=== PATIENT | male | born 1975 | race Caucasian/White ===

== ENCOUNTER 2017-02-28 19:46 | Emergency (ER) | payer OTHER ==
[~2017-02-28 19:46] MED LIST: BENADRYL ALLERG25 M1 PO; CIMETIDINE200 MG PO; FENOFIBRATE54 M1 PO; HYDROCHLOROTHIA25 MG PO; LEXAPRO10 MG PO; LISINOPRIL20 MG PO; MEDDP PO; METOPROLOL SUCC25 M1 PO; SER25 PO
[2017-02-28 20:46] VITALS: BP 148/93
== END 2017-02-28 20:46 | disposition left against medical advice (07) ==
LOC: ED 19:46
DX: S00.212A Abrasion of left eyelid and periocular area, initial encounter (principal); I10 Essential (primary) hypertension; F41.9 Anxiety disorder, unspecified; F10.10 Alcohol abuse, uncomplicated; E78.5 Hyperlipidemia, unspecified; I00 Rheumatic fever without heart involvement; W22.8XXA Striking against or struck by other objects, initial encounter; Y93.89 Activity, other specified; Y92.89 Other specified places as the place of occurrence of the external cause; Y99.8 Other external cause status
CPT/HCPCS: 90715

== ENCOUNTER 2017-04-30 11:16 | Emergency (ER) | payer OTHER ==
[2017-04-30 12:17] VITALS: BP 132/98
== END 2017-04-30 12:17 | disposition home or self-care (01) ==
LOC: ED 11:16
DX: S29.012A Strain of muscle and tendon of back wall of thorax, initial encounter (principal); M77.9 Enthesopathy, unspecified; I10 Essential (primary) hypertension; E78.00 Pure hypercholesterolemia, unspecified; X50.9XXA Other and unspecified overexertion or strenuous movements or postures, initial encounter; Y93.89 Activity, other specified; Y99.8 Other external cause status; Y92.89 Other specified places as the place of occurrence of the external cause

== ENCOUNTER 2018-12-28 17:44 | Emergency (ER) | payer OTHER ==
[~2018-12-28] VITALS: Ht 175.3 cm; Wt 64.0 kg
[2018-12-28 17:49] VITALS: Ht 175.3 cm; Wt 64.0 kg
[2018-12-28 20:41] VITALS: BP 152/78
== END 2018-12-28 20:30 | disposition home or self-care (01) ==
LOC: ED 17:44
DX: M54.5 Low back pain (principal); G89.29 Other chronic pain; I10 Essential (primary) hypertension; F41.9 Anxiety disorder, unspecified; F10.10 Alcohol abuse, uncomplicated; E78.00 Pure hypercholesterolemia, unspecified; R20.2 Paresthesia of skin
CPT/HCPCS: J1885; J2270; Q0162

== ENCOUNTER 2019-01-08 17:11 | Emergency (ER) | payer OTHER ==
[~2019-01-08] VITALS: Ht 175.3 cm; Wt 62.7 kg
[2019-01-08 17:40] VITALS: Ht 175.3 cm; Wt 62.7 kg
[2019-01-08 20:33] LABS: microscopic required? NO
[2019-01-08 20:50] LABS: UA SPECIFIC GRAVITY >=1.030 (1.005-1.035); urine erythrocyte NEGATIVE (NEGATIVE)
[2019-01-08 21:28] VITALS: BP 133/95
== END 2019-01-08 21:28 | disposition home or self-care (01) ==
LOC: ED 17:11
PROVIDERS: Emergency Medicine
DX: M70.72 Other bursitis of hip, left hip (principal); M70.71 Other bursitis of hip, right hip; L73.8 Other specified follicular disorders; M54.42 Lumbago with sciatica, left side; M54.41 Lumbago with sciatica, right side; I10 Essential (primary) hypertension; F41.9 Anxiety disorder, unspecified; F10.10 Alcohol abuse, uncomplicated; E78.00 Pure hypercholesterolemia, unspecified; Y93.89 Activity, other specified

== ENCOUNTER 2019-01-17 18:19 | Emergency (ER) | payer OTHER ==
[~2019-01-17] VITALS: Ht 175.3 cm; Wt 61.7 kg
[2019-01-17 18:31] VITALS: Ht 175.3 cm; Wt 61.7 kg
[2019-01-17 21:05] VITALS: BP 156/84
== END 2019-01-17 21:05 | disposition home or self-care (01) ==
LOC: ED 18:19
DX: S39.92XA Unspecified injury of lower back, initial encounter (principal); F41.9 Anxiety disorder, unspecified; F10.10 Alcohol abuse, uncomplicated; W18.39XA Other fall on same level, initial encounter; Y93.89 Activity, other specified; Y92.89 Other specified places as the place of occurrence of the external cause; Y99.0 Civilian activity done for income or pay
CPT/HCPCS: J1885

== ENCOUNTER 2019-02-08 15:48 | Emergency (ER) | payer OTHER ==
[~2019-02-08] VITALS: Ht 175.3 cm; Wt 62.6 kg
[2019-02-08 16:01] VITALS: Ht 175.3 cm; Wt 62.6 kg
[2019-02-08 17:04] VITALS: BP 134/82
== END 2019-02-08 17:04 | disposition home or self-care (01) ==
LOC: ED 15:48
DX: T78.2XXA Anaphylactic shock, unspecified, initial encounter (principal); R06.02 Shortness of breath; R06.03 Acute respiratory distress; I10 Essential (primary) hypertension; F41.9 Anxiety disorder, unspecified; E78.00 Pure hypercholesterolemia, unspecified; I00 Rheumatic fever without heart involvement
CPT/HCPCS: J1885

== ENCOUNTER 2019-02-11 04:13 | Emergency (ER) | payer OTHER ==
[~2019-02-11] VITALS: Ht 175.3 cm; Wt 64.9 kg
[2019-02-11 04:15] VITALS: Ht 175.3 cm; Wt 64.9 kg
[2019-02-11 10:23] VITALS: BP 109/936
== END 2019-02-11 10:23 | disposition home or self-care (01) ==
LOC: ED 04:13
DX: T88.6XXA Anaphylactic reaction due to adverse effect of correct drug or medicament properly administered, initial encounter (principal); T44.5X5A Adverse effect of predominantly beta-adrenoreceptor agonists, initial encounter; I10 Essential (primary) hypertension; F41.9 Anxiety disorder, unspecified; F10.10 Alcohol abuse, uncomplicated; E78.00 Pure hypercholesterolemia, unspecified; Y92.89 Other specified places as the place of occurrence of the external cause
CPT/HCPCS: J0171; J1200; J2930; J3490

== ENCOUNTER 2019-04-12 21:13 | Emergency (ER) | payer OTHER ==
[~2019-04-12] VITALS: Ht 175.3 cm; Wt 67.6 kg
[2019-04-12 21:52] VITALS: Ht 175.3 cm; Wt 67.6 kg
[2019-04-13 01:07] VITALS: BP 140/76
== END 2019-04-13 01:07 | disposition home or self-care (01) ==
LOC: ED 21:13
DX: M51.9 Unspecified thoracic, thoracolumbar and lumbosacral intervertebral disc disorder (principal); F17.210 Nicotine dependence, cigarettes, uncomplicated; I10 Essential (primary) hypertension; F41.9 Anxiety disorder, unspecified; E78.00 Pure hypercholesterolemia, unspecified
CPT/HCPCS: J1885; J2270; Q0162

== ENCOUNTER 2019-05-12 16:10 | Emergency (ER) | payer OTHER ==
[~2019-05-12] VITALS: Ht 175.3 cm; Wt 62.6 kg
[2019-05-12 16:14] VITALS: Ht 175.3 cm; Wt 62.6 kg
[2019-05-12 18:59] VITALS: BP 162/94
== END 2019-05-12 18:59 | disposition home or self-care (01) ==
LOC: ED 16:10
DX: S16.1XXA Strain of muscle, fascia and tendon at neck level, initial encounter (principal); F41.9 Anxiety disorder, unspecified; E78.00 Pure hypercholesterolemia, unspecified; V43.62XA Car passenger injured in collision with other type car in traffic accident, initial encounter; Y93.I9 Activity, other involving external motion; Y92.413 State road as the place of occurrence of the external cause; Y99.8 Other external cause status
CPT/HCPCS: J1200

== ENCOUNTER 2019-06-23 04:47 | Emergency (ER) | payer OTHER ==
[~2019-06-23] VITALS: Ht 175.3 cm; Wt 68.0 kg
[2019-06-23 05:02] VITALS: Ht 175.3 cm; Wt 68.0 kg
[2019-06-23 07:09] VITALS: BP 113/81
== END 2019-06-23 07:36 | disposition home or self-care (01) ==
LOC: ED 04:47
DX: M54.41 Lumbago with sciatica, right side (principal)
CPT/HCPCS: J1885; J2270

== ENCOUNTER 2020-01-15 15:04 | Emergency (ER) | payer OTHER ==
[~2020-01-15] VITALS: Ht 175.3 cm; Wt 76.2 kg
[2020-01-15 15:43] VITALS: Ht 175.3 cm; Wt 76.2 kg
[2020-01-15 20:07] VITALS: BP 150/102
== END 2020-01-15 20:07 | disposition home or self-care (01) ==
LOC: ED 15:04
DX: M54.5 Low back pain (principal); G89.29 Other chronic pain; E78.00 Pure hypercholesterolemia, unspecified
CPT/HCPCS: J1885